=== PATIENT | male | born 1995 | race Caucasian/White ===

== ENCOUNTER 2017-05-13 19:49 | Emergency (ER) | payer OTHER ==
[~2017-05-13] VITALS: Ht 167.6 cm; Wt 54.4 kg
[2017-05-14] MEDS ORDERED: ZITHROMAX500 MG PO (04:35)
[2017-05-14] MEDS ORDERED: ZYNCOF 20-400120 ML PO (04:35)
== END 2017-05-14 04:31 | disposition home or self-care (01) ==
LOC: ER 19:49
DX: J11.1 Influenza due to unidentified influenza virus with other respiratory manifestations (principal)